=== PATIENT | male | born 1975 | race Caucasian/White ===

== ENCOUNTER → 2020-10-16 12:53 | Outpatient (CLI) | payer MEDICAID, SELFPAY ==
[2019-10-05 11:02] VITALS: BMI 35.0
[2020-10-16 15:32] LABS: Absolute Lymphocyte Count 2.58 X10^3/uL (0.83-4.51); Absolute Neutrophil Count 4.9 X10^3/uL (2.0-7.7); Basophil# 0.05 X10^3/uL; Basophil% 0.6 % (0-1); Eosinophil# 0.27 X10^3/uL; Eosinophils% 3.1 % (0-5); Hematocrit 47.3 % (40-54); Hemoglobin 15.8 g/dL (13.0-16.5); Lymphocyte # 2.58 X10^3/ul (4.0); Lymphocyte % 29.4 % (19-41); Mean Corp Hgb Conc 33.4 g/dL (32-36); Mean Corpuscular Hgb 29.2 pg (27.0-32.0); Mean Corpuscular Volume 87.3 fL (80-94); Mean Platelet Vol. 10.2 fl (6.2-12.0); Monocyte% 10.2 % (0-10); NRBC Flagged by Analyzer 0 % (0-5); Neutrophil # 4.94 X10^3/uL (2.7-7.7); Neutrophil % 56.1 % (47-70); Platelet Count 260 K/mm3 (150-450); RBC Distribution Width SD 38.5 fl (35.1-43.9); Red Blood Count 5.42 M/mm3 (4.6-6.2); White Blood Count 8.8 K/mm3 (4.4-11.0)
[2020-10-16 15:50] LABS: Vitamin B12 548 pg/mL (211-911); Vitamin D,25 Hydroxy 20.3 ng/mL
[2020-10-16 15:56] LABS: Hemoglobin A1c 8.5 % (3.8-5.6)
[2020-10-16 16:41] LABS: ALB/GLOB Ratio 1.2 RATIO (0.9-2.4); AST(SGOT) 13 U/L (15-37); Alanine Aminotransfer ALT/SGPT 32 U/L (16-61); Albumin, Serum 3.9 g/dL (3.2-5.0); Alkaline Phosphatase 65 U/L (45-117); Anion Gap 5 (5-15); BUN 15 mg/dL (7-18); BUN/Creat Ratio 15.8 RATIO (10-20); Calcium,Total 9.1 mg/dL (8.5-10.1); Chloride 103 mmol/L (98-107); Cholesterol 212 mg/dL (200); Creatinine, Serum 0.95 mg/dL (0.70-1.30); EST Glomerular Filtration Rate 91 mL/min (>60); Est Glom Filt Rate - Afr Amer 110 mL/min (>60); Globulin 3.3 g/dL (2.2-4.2); Glucose 188 mg/dL (74-106); High Density Lipoprotein 46 mg/dL; Potassium 3.9 mmol/L (3.5-5.1); Protein, Total 7.2 g/dL (6.4-8.2); Sodium Level 136 mmol/L (136-145); Thyroid Stim Hormone (TSH) 1.57 uIU/mL (0.358-3.74); Triglycerides 291 mg/dL; Very Low Density Lipoprotein 58 mg/dL (5-40)
== END ==
PROVIDERS: PCP Family Medicine; Referring Provider Family Medicine; Visit Provider Family Medicine
DX: R53.83 Other fatigue (principal); Z86.39 Personal history of other endocrine, nutritional and metabolic disease; E66.9 Obesity, unspecified
CPT/HCPCS: 36415; 80053; 80061; 82306; 82607; 82746; 83036; 84443; 85025

== ENCOUNTER → 2020-12-05 20:00 | Outpatient (CLI) | payer MEDICAID, SELFPAY ==
[2020-11-10 12:43] VITALS: BMI 34.2
== END ==
PROVIDERS: PCP Family Medicine; Referring Provider Nurse Practitioner Acute Care; Visit Provider Nurse Practitioner Acute Care
DX: G47.33 Obstructive sleep apnea (adult) (pediatric) (principal)
CPT/HCPCS: 95810

== ENCOUNTER → 2020-12-15 10:49 | Outpatient (CLI) | payer MEDICAID, SELFPAY ==
[2020-11-10 12:43] VITALS: BMI 34.2
== END ==
PROVIDERS: PCP Family Medicine; Visit Provider Nurse Practitioner Acute Care
DX: Z46.89 Encounter for fitting and adjustment of other specified devices (principal)

== ENCOUNTER → 2020-12-29 | Outpatient (CLI) | payer MEDICAID, SELFPAY | END | disposition home or self-care (01) | LOC: SL 09:03 | PROVIDERS: PCP Family Medicine; Visit Provider Family Medicine | DX: G47.33 Obstructive sleep apnea (adult) (pediatric) (principal) ==

== ENCOUNTER 2021-06-10 12:55 | Emergency (ER) | payer MEDICAID, SELFPAY ==
[2021-06-10 12:56] VITALS: BP 126/81; PULSE 81; RESP 16; TEMP 36.2; O2SAT 97; BMI 34.2
--- NOTE | 2021-06-10 14:28 | EX.ED.UPPERE ---
HPI History of Present Illness Chief Complaint: Laceration Informant: patient Occured/Mechanism Comment: Cut with angle track grinder operator Onset/Context/Timing Onset: Today Context: Sudden Onset Location: Left hand, right forearm Associated Symptoms Associated Symptoms: Negative for Parasthesia, Weakness and Loss of Funtion Narrative Narrative: Patient presents with lacerations to his left hand and right forearm that began today. Patient states he was using an angle track grinder operator when it kicked back and cut his left hand and right forearm. Patient states his last tetanus was approximately 6 years ago. Patient denies any pain at the present time. Patient denies any paresthesias or weakness. Patient denies any other injuries. Tetanus Immunization: 5-10 years [facility] Medical History (Updated 06/10/21 @ 14:[address] Donovan Sánchez DO) Asthma History of alcohol abuse Medical History no medical history Home Medications cephalexin 500 mg PO Q6 #40 capsule 06/10/21 [Rx Last Taken Unknown] Allergy/AdvReac Type Severity Reaction Status Date / Time acetaminophen [From Percocet] AdvReac Vomiting Verified 06/10/21 12:57 oxycodone HCl [From Percocet] AdvReac Vomiting Verified 06/10/21 12:57 Family History Father Diabetes Sister Diabetes Grandfather Diabetes Grandmother Diabetes Other Arthritis Cancer Surgical History History of tonsillectomy Social History Smoking Status: Current every day smoker tobacco type: cigarettes Tobacco: How many years used: 20 Electronic Cigarette Use: not used second hand exposure: Yes alcohol intake: former year quit: 2010 substance use type: does not use what type of physical activity do you participate in: walking frequency: daily ROS ROS ED Constitutional Constitutional ED: Denies chills or fever(s) Eyes Eyes: Denies blurry vision or change in vision ENT ENT ED: Denies rhinorrhea or sore throat Cardiovascular Cardiovascular: Denies chest pain or palpitations Respiratory/Chest Respiratory/Chest: Denies cough or dyspnea Gastrointestinal Gastrointestinal: Denies nausea or vomiting Genitourinary Genitourinary ED: Denies dysuria or hematuria Musculoskeletal Musculoskeletal: Denies back pain or neck pain Integumentary Denies abscess or rash Neurologic Neurologic: Denies headache(s) or weakness Allergic/Immunologic Allergic/Immunologic ED: Denies mouth swelling or urticaria EXAM Physical Exam Const Vital Signs: 06/10/21 12:56 Temperature 97.1 F L Temperature Source Temporal Pulse Rate 81 Respiratory Rate 16 Blood Pressure 126/81 H Blood Pressure Mean 96 Pulse Ox 97 Oxygen Delivery Method Room Air Positive well nourished and well developed General Appearance ED: well developed and NAD HEENT Reports moist mucous membranes Neck full ROM and supple Extremity normal to inspection and full ROM Neuro oriented x3, CN's II-XII intact bilaterally, moves all extremities, no focal motor deficits and no sensory deficits noted Sensorium / Orientation: alert Skin Skin Narrative: There is a 3 cm full-thickness linear laceration over the dorsal aspect of his left hand. There is moderate gapping of the wound margins. There is some mild bleeding noted. There are no foreign bodies noted. There is also a superficial 3 cm laceration over the volar aspect of the right forearm. There is minimal gapping of the wound margins. There are no foreign bodies. There is minimal bleeding. There is full range of motion of the upper extremities bilaterally. Strength is 5/5 in the radial, median, and ulnar areas. Sensation was intact to light touch in the radial, median, and ulnar areas. Radial pulses are equal bilaterally. MDM MDM MDM Narrative Medical decision making narrative: The left hand wound was cleaned and irrigated with copious amounts of normal saline. The wound was anesthetized with 1% plain lidocaine locally. The wound was closed with 5 simple interrupted #5-0 nylon sutures under sterile technique. Patient tolerated the procedure well. Bacitracin dressing was applied. The right forearm wound was cleaned and irrigated. The wound was closed with Dermabond skin adhesive. Patient tolerated the procedure well. Patient was instructed to avoid bacitracin, Neosporin, or Vaseline-based ointments to the right forearm. Patient was instructed to use bacitracin dressings to the left hand. Patient was given a prescription for Keflex. Patient was given his first dose here. Patient was instructed to follow-up with his primary care physician in 5 to 7 days for wound recheck and suture removal. Patient understood and was agreeable with the plan. All questions were answered. Procedures Lacerations Left hand: Length: 3 cm Depth: Sub Q Shape: Linear Prep: Sterile Conditions and Chlorhexadine Laceration repair: Irrigated, Lidocaine, Local and Wound explored Irrigated (ml): 60 Number of Sutures/Meena: 5 Suture Information: Ethilon, Simple and 5-0 Right forearm: Length: 3 cm Depth: Skin Shape: Linear Prep: Sterile Conditions and Chlorhexadine Laceration repair: Dermabond Discharge Plan Triage Chief Complaint: Laceration ED Provider: Donovan Sánchez Dx/Rx/DC Orders Clinical Impression: Laceration of left hand, Laceration of right forearm Instructions: ED Laceration, Hand: All Closures, ED Laceration, Extremity: Skin Glue Prescriptions: New cephalexin [cephalexin] 500 MG capsule 500 mg PO Q6 Qty: 40 RF: 0 Primary Care Provider: Care Physician,No Primary Referrals: William Hernandez MD [STAFF PHYSICIAN] - 7 Days for suture removal Care Physician,No Primary [Primary Care Provider] - Disposition Disposition: Home, Self Care
[2021-06-10] MEDS: Cephalexin 500 MG Capsule PO (14:59)
[2021-06-10] MEDS: Lidocaine 1% (20 ml mdv) 20 ML Vial INFILT (15:06)
== END 2021-06-10 15:38 | disposition home or self-care (01) ==
PROVIDERS: Emergency Provider Emergency Medicine
DX: S61.412A Laceration without foreign body of left hand, initial encounter (principal); S51.811A Laceration without foreign body of right forearm, initial encounter; W29.8XXA Contact with other powered hand tools and household machinery, initial encounter; Y93.9 Activity, unspecified; Y92.9 Unspecified place or not applicable; J45.909 Unspecified asthma, uncomplicated; F17.210 Nicotine dependence, cigarettes, uncomplicated
CPT/HCPCS: 12002; 99281; 99283